=== PATIENT | male | born 1965 | race Caucasian/White ===

== ENCOUNTER 2016-02-16 11:16 | Emergency (ER) | payer OTHER ==
--- NOTE | 2016-02-16 14:28 | ED NURSING NOTES ---
Clinical Report - Nurses [facility] [address] [place] [address] 02/16/2016 11:17 Patient: GEORGETTE HONG TRIAGE Chief Complaint: BOIL and TENDER AREA. Alert. No acute distress. --11:44 Gary Cary R.N. 11:40 02/16/16. BP: 149/93. HR: 81. RR: 16. O2 saturation: 100%. Temp: 98.4 F. Pain level now: 07/24. --11:44 Gary Cary R.N. Weight: 77.1 kg stated. Height/Length: 71 inches Per Patient. BMI: 23.7. --11:42 Gary Cary R.N. Allergies No Known Drug Allergy. --14:41 Gary Cary R.N. History Arrived by private vehicle, and accompanied by family. Reported as located on the neck. Onset. (patient states that he noticed it when he was 26 years old, worsened recently). It is described as painful. Treatment PARTNERSHIP MANAGER: None. SOCIAL HX: Heavy tobacco smoker (cigarette)- 1-2 packs per day. FALL RISK ASSESSMENT: Fall risk assessment completed. No fall risk identified. NUTRITIONAL RISK ASSESSMENT: The nutritional risk assessment revealed no deficiencies. FUNCTIONAL ASSESSMENT: Functional assessment: no impairments noted. LEARNING NEEDS ASSESSMENT: The learning needs assessment revealed no barriers. SKIN INTEGRITY ASSESSMENT: Skin integrity risk assessment completed. No skin integrity risk identified. --11:44 Gary Cary R.N. ( Patient presents to the ED with symptoms of an abscess to the right side of the back of his head. States that he noticed the growth when he was 26 years old, but states that he thought it was just a pimple and that it would go away over time. States that the abscess became significantly worse a few days ago to the point that he was not able to put his hard hat on a work, so he decided to come and get seen.). --11:52 Gary Cary R.N. PROBLEMS: Tetanus Status. COPD - Chronic Obstructive Pulmonary Disease. --11:43 Gary Cary R.N. ADDITIONAL SURGERIES: Ankle. --11:43 Gary Cary R.N. Interventions ID band on patient. --11:44 Gary Cary R.N. PHYSICAL ASSESSMENT Ambulatory to room. GENERAL / NEURO / PSYCH: Alert. The patient does not appear to be in acute distress. Oriented X 4. HEENT: Pupils equal, round and reactive to light. Mucous membranes are pink. RESPIRATORY: Respirations not labored. Breath sounds within normal limits. CVS: Capillary refill less than 2 seconds. Pulses within normal limits. GI / : Abdomen nontender. SKIN: Skin is intact, warm and dry. Skin tenderness present. Swelling present. No skin rash. --11:44 Gary Cary R.N. NURSING PROGRESS NOTES I & D: Incision and Drainage of abscess performed by ED physician. The abscess is located on the neck. Preparation: Incision and Drainage tray set up and suture tray set-up. Procedure: skin cleansed with Betadine; a large amount of pus was drained. Cavity was irrigated with saline. Sample obtained for cultures. A dressing was applied. Post-procedure: he was stable, no complications, bleeding controlled and dressing intact. Total time of assist / procedure: 15 minutes. --14:08 Gary Cary R.N. 14:38 02/16/2016 Hydrocodone-APAP (Hydrocodone-Acetaminophen) PO 5/325 mg Tablets 1 tab given. Allergies verified, confirmed 5 rights and sedative warning given to the patient and patient's family. --14:38 Gary Cary R.N. Applied bulky dressing consisting of Tegaderm. --14:39 Gary Cary R.N. DISPOSITION / DISCHARGE Condition at departure: improved. The goals identified in the patient's plan of care were met. No learning barriers present. Discharge instructions provided and reviewed with the patient. Reviewed medication(s) side effects, precautions, dosing and course information. Prescription(s) given to the patient. Reviewed wound care instructions. Reviewed referral to a surgeon. Patient verbalized understanding. Written instructions provided in Rwandan. The patient was discharged home and accompanied by spouse. He left the Emergency Department ambulatory and via private vehicle. Spouse driving. FALL RISK ASSESSMENT: Fall risk assessment completed. No fall risk identified. --14:40 Gary Cary R.N. 14:39 02/16/16. BP: 150/92. HR: 73. RR: 18. O2 saturation: 98%. Temp: 98.2 F. Pain level now 8/10. --14:40 Gary Cary R.N. Departure time: 1440 PM. --14:40 Gary Cary R.N. Locked/Released at 02/16/2016 14:41 by Gary Cary R.N.
--- NOTE | 2016-02-16 14:28 | ED CLINICAL REPORT ---
Clinical Report - Physicians/Mid Levels [facility] [address] [place] [address] 02/16/2016 11:17 Patient: GEORGETTE HONG Time Seen: 12:46; initial patient contact. Arrived- By private vehicle. Historian- patient. HISTORY OF PRESENT ILLNESS Chief Complaint: BOIL. This started several years ago and is still present and worsening. It was gradual in onset. It is described as painful. It has been located on the neck. No cause has been identified. No recent medication or insect bite. Similar symptoms previously: None. Recent medical care: Not recently seen/assessed. REVIEW OF SYSTEMS No fever, chills or enlarged lymph nodes. He has had a headache. All systems otherwise negative, except as recorded above. PAST HISTORY COPD - Chronic Obstructive Pulmonary Disease. ADDITIONAL SURGERIES: Ankle. Allergies: No Known Drug Allergy. SOCIAL HISTORY Current every day smoker. No alcohol use or drug use. ADDITIONAL NOTES The nursing notes have been reviewed with agreement regarding the chief complaint, PMH and patient medications and allergies. PHYSICAL EXAM Vital Signs: 02/16/2016 11:40 BP: 149/93. HR: 81. RR: 16. O2 saturation: 100%. Temp: 98.4 F. Pain level now: 6/10. Have been reviewed. Hypertensive. Heart rate normal. Respiratory rate normal. Temperature normal. Oxygen saturation normal. Appearance: Alert. Oriented X3. No acute distress. ENT: Pharynx normal. Neck: Neck supple. No lymphadenopathy. CVS: Normal heart rate and rhythm. Heart sounds normal. Respiratory: No respiratory distress. Breath sounds normal. Skin: Single large tender indurated area with fluctuance and pointing to the back. No drainage or cellulitis. Neuro: Oriented X 3. LABS, X-RAYS, AND EKG Laboratory Tests: Culture, Wound Deep: (JERMAINE: 02/16/2016 14:00) ( MsgRcvd 02/16/2016 16:38) IP SPECIMEN DESCRIPTION: I D NECK CYST Test Result Flag Units (Reference) GRAM STAIN, WOUND, DEEP EPITHELIAL CELLS: FEW MIXED NIR: MIXED NIR WHITE BLOOD CELLS: FEW -- CYST FROM NECK . PROGRESS AND PROCEDURES Incision & Drainage of Abscess: Time: 14:11. Per protocol, time-out completed immediately before the procedure. The abscess is located in the neck. The risks of the procedure, benefits and alternatives were explained. Anesthesia provided using 1% lidocaine. Skin cleansed with Shur-Clens. The abscess was incised with a #11 surgical blade. A large amount of pus was drained. Cavity was irrigated with saline. Sample obtained for cultures. A dressing was applied. Estimated blood loss: 5 mL. Disposition: Discharged home in good and improved condition. Condition: good. CLINICAL IMPRESSION 02/16/2016 11:40 BP: 149/93. HR: 81. RR: 16. O2 saturation: 100%. Temp: 98.4 F. Pain level now: 07/24. Vital Signs: have been reviewed. Hypertensive. Heart rate normal. Respiratory rate normal. Temperature normal. Oxygen saturation normal. Sebaceous cyst INSTRUCTIONS Protect wound and keep wound area clean. Leave dressing in place until seen in follow-up. Prescription Medications: Hydrocodone/APAP 5mg / 325mg: take 1 orally every 6 hours as needed for pain. Dispense fifteen (15). No refill. Follow-up: Screening today revealed the patient's blood pressure to be in the hypertensive range. The patient should follow up with a primary care provider for blood pressure management. Follow-up with: Cj Mark MD, General Surgeon, , [facility], [address] [place] [address] Follow up in two. Call for an appointment. (Electronically signed by Lewis Kyle Dr. 02/16/2016 22:33)
--- NOTE | 2016-02-16 14:28 | ED CLINICAL REPORT ---
Clinical Report - Physicians/Mid Levels [facility] [address] [place] [address] 02/16/2016 11:17 Patient: GEORGETTE HONG Time Seen: 12:46; initial patient contact. Arrived- By private vehicle. Historian- patient. HISTORY OF PRESENT ILLNESS Chief Complaint: BOIL. This started several years ago and is still present and worsening. It was gradual in onset. It is described as painful. It has been located on the neck. No cause has been identified. No recent medication or insect bite. Similar symptoms previously: None. Recent medical care: Not recently seen/assessed. REVIEW OF SYSTEMS No fever, chills or enlarged lymph nodes. He has had a headache. All systems otherwise negative, except as recorded above. PAST HISTORY COPD - Chronic Obstructive Pulmonary Disease. ADDITIONAL SURGERIES: Ankle. Allergies: No Known Drug Allergy. SOCIAL HISTORY Current every day smoker. No alcohol use or drug use. ADDITIONAL NOTES The nursing notes have been reviewed with agreement regarding the chief complaint, PMH and patient medications and allergies. PHYSICAL EXAM Vital Signs: 02/16/2016 11:40 BP: 149/93. HR: 81. RR: 16. O2 saturation: 100%. Temp: 98.4 F. Pain level now: 6/10. Have been reviewed. Hypertensive. Heart rate normal. Respiratory rate normal. Temperature normal. Oxygen saturation normal. Appearance: Alert. Oriented X3. No acute distress. ENT: Pharynx normal. Neck: Neck supple. No lymphadenopathy. CVS: Normal heart rate and rhythm. Heart sounds normal. Respiratory: No respiratory distress. Breath sounds normal. Skin: Single large tender indurated area with fluctuance and pointing to the back. No drainage or cellulitis. Neuro: Oriented X 3. LABS, X-RAYS, AND EKG Laboratory Tests: Culture, Wound Deep: (JERMAINE: 02/16/2016 14:00) ( MsgRcvd 02/16/2016 16:38) IP SPECIMEN DESCRIPTION: I D NECK CYST Test Result Flag Units (Reference) GRAM STAIN, WOUND, DEEP EPITHELIAL CELLS: FEW MIXED NIR: MIXED NIR WHITE BLOOD CELLS: FEW -- CYST FROM NECK . PROGRESS AND PROCEDURES Incision & Drainage of Abscess: Time: 14:11. Per protocol, time-out completed immediately before the procedure. The abscess is located in the neck. The risks of the procedure, benefits and alternatives were explained. Anesthesia provided using 1% lidocaine. Skin cleansed with Shur-Clens. The abscess was incised with a #11 surgical blade. A large amount of pus was drained. Cavity was irrigated with saline. Sample obtained for cultures. A dressing was applied. Estimated blood loss: 5 mL. Disposition: Discharged home in good and improved condition. Condition: good. CLINICAL IMPRESSION 02/16/2016 11:40 BP: 149/93. HR: 81. RR: 16. O2 saturation: 100%. Temp: 98.4 F. Pain level now: 07/24. Vital Signs: have been reviewed. Hypertensive. Heart rate normal. Respiratory rate normal. Temperature normal. Oxygen saturation normal. Sebaceous cyst INSTRUCTIONS Protect wound and keep wound area clean. Leave dressing in place until seen in follow-up. Prescription Medications: Hydrocodone/APAP 5mg / 325mg: take 1 orally every 6 hours as needed for pain. Dispense fifteen (15). No refill. Follow-up: Screening today revealed the patient's blood pressure to be in the hypertensive range. The patient should follow up with a primary care provider for blood pressure management. Follow-up with: Cj Mark MD, General Surgeon, , [facility], [address] [place] [address] Follow up in two. Call for an appointment. (Electronically signed by Lewis Kyle Dr. 02/16/2016 22:33)
--- NOTE | 2016-02-16 14:28 | ED ORDER SUMMARY ---
..... Patient: GEORGETTE HONG OrderSheet [facility] VisitID: [id number] [address] [place] [address] 50y, M Registration Date/Time: 02/16/2016 ORDER SHEET Weight: 77.1 kg (stated) Allergies: No Known Drug Allergy GENERAL ORDERS: Culture, Wound Deep (Cyst) (I&D neck cyst) Urgent (14:07 02/16/2016 Darian Salazar) (Ack 14:09 IJurca ER Tech1) (14:26 Joel R.N.) MEDICATION ORDERS: Hydrocodone-APAP PO 5/325 mg (NOW, HIGH ALERT MEDICATION) (14:14 02/16/2016 Darian Salazar) (14:38 Joel R.N.) IV FLUIDS: ORDER SHEET NOTES: [Electronically signed by Gary Cary R.N. (14:41 02/16/2016)] [Electronically signed by Lewis Kyle Dr. (22:33 02/16/2016)] [Electronically locked/signed by Gary Cary R.N. (14:41 02/16/2016)]
--- NOTE | 2016-02-16 14:28 | ED ORDER SUMMARY ---
..... Patient: GEORGETTE HONG OrderSheet [facility] VisitID: [id number] [address] [place] [address] 50y, M Registration Date/Time: 02/16/2016 ORDER SHEET Weight: 77.1 kg (stated) Allergies: No Known Drug Allergy GENERAL ORDERS: Culture, Wound Deep (Cyst) (I&D neck cyst) Urgent (14:07 02/16/2016 Darian Salazar) (Ack 14:09 IJurca ER Tech1) (14:26 Joel R.N.) MEDICATION ORDERS: Hydrocodone-APAP PO 5/325 mg (NOW, HIGH ALERT MEDICATION) (14:14 02/16/2016 Darian Salazar) (14:38 Joel R.N.) IV FLUIDS: ORDER SHEET NOTES: [Electronically signed by Gary Cary R.N. (14:41 02/16/2016)] [Electronically signed by Lewis Kyle Dr. (22:33 02/16/2016)] [Electronically locked/signed by Gary Cary R.N. (14:41 02/16/2016)]
--- NOTE | 2016-02-16 14:28 | ED NURSING NOTES ---
Clinical Report - Nurses [facility] [address] [place] [address] 02/16/2016 11:17 Patient: GEORGETTE HONG TRIAGE Chief Complaint: BOIL and TENDER AREA. Alert. No acute distress. --11:44 Gary Cary R.N. 11:40 02/16/16. BP: 149/93. HR: 81. RR: 16. O2 saturation: 100%. Temp: 98.4 F. Pain level now: 07/24. --11:44 Gary Cary R.N. Weight: 77.1 kg stated. Height/Length: 71 inches Per Patient. BMI: 23.7. --11:42 Gary Cary R.N. Allergies No Known Drug Allergy. --14:41 Gary Cary R.N. History Arrived by private vehicle, and accompanied by family. Reported as located on the neck. Onset. (patient states that he noticed it when he was 26 years old, worsened recently). It is described as painful. Treatment SALES AND SERVICE SPECIALIST: None. SOCIAL HX: Heavy tobacco smoker (cigarette)- 1-2 packs per day. FALL RISK ASSESSMENT: Fall risk assessment completed. No fall risk identified. NUTRITIONAL RISK ASSESSMENT: The nutritional risk assessment revealed no deficiencies. FUNCTIONAL ASSESSMENT: Functional assessment: no impairments noted. LEARNING NEEDS ASSESSMENT: The learning needs assessment revealed no barriers. SKIN INTEGRITY ASSESSMENT: Skin integrity risk assessment completed. No skin integrity risk identified. --11:44 Gary Cary R.N. ( Patient presents to the ED with symptoms of an abscess to the right side of the back of his head. States that he noticed the growth when he was 26 years old, but states that he thought it was just a pimple and that it would go away over time. States that the abscess became significantly worse a few days ago to the point that he was not able to put his hard hat on a work, so he decided to come and get seen.). --11:52 Gary Cary R.N. PROBLEMS: Tetanus Status. COPD - Chronic Obstructive Pulmonary Disease. --11:43 Gary Cary R.N. ADDITIONAL SURGERIES: Ankle. --11:43 Gary Cary R.N. Interventions ID band on patient. --11:44 Gary Cary R.N. PHYSICAL ASSESSMENT Ambulatory to room. GENERAL / NEURO / PSYCH: Alert. The patient does not appear to be in acute distress. Oriented X 4. HEENT: Pupils equal, round and reactive to light. Mucous membranes are pink. RESPIRATORY: Respirations not labored. Breath sounds within normal limits. CVS: Capillary refill less than 2 seconds. Pulses within normal limits. GI / : Abdomen nontender. SKIN: Skin is intact, warm and dry. Skin tenderness present. Swelling present. No skin rash. --11:44 Gary Cary R.N. NURSING PROGRESS NOTES I & D: Incision and Drainage of abscess performed by ED physician. The abscess is located on the neck. Preparation: Incision and Drainage tray set up and suture tray set-up. Procedure: skin cleansed with Betadine; a large amount of pus was drained. Cavity was irrigated with saline. Sample obtained for cultures. A dressing was applied. Post-procedure: he was stable, no complications, bleeding controlled and dressing intact. Total time of assist / procedure: 15 minutes. --14:08 Gary Cary R.N. 14:38 02/16/2016 Hydrocodone-APAP (Hydrocodone-Acetaminophen) PO 5/325 mg Tablets 1 tab given. Allergies verified, confirmed 5 rights and sedative warning given to the patient and patient's family. --14:38 Gary Cary R.N. Applied bulky dressing consisting of Tegaderm. --14:39 Gary Cary R.N. DISPOSITION / DISCHARGE Condition at departure: improved. The goals identified in the patient's plan of care were met. No learning barriers present. Discharge instructions provided and reviewed with the patient. Reviewed medication(s) side effects, precautions, dosing and course information. Prescription(s) given to the patient. Reviewed wound care instructions. Reviewed referral to a surgeon. Patient verbalized understanding. Written instructions provided in Turkish. The patient was discharged home and accompanied by spouse. He left the Emergency Department ambulatory and via private vehicle. Spouse driving. FALL RISK ASSESSMENT: Fall risk assessment completed. No fall risk identified. --14:40 Gary Cary R.N. 14:39 02/16/16. BP: 150/92. HR: 73. RR: 18. O2 saturation: 98%. Temp: 98.2 F. Pain level now 8/10. --14:40 Gary Cary R.N. Departure time: 1440 PM. --14:40 Gary Cary R.N. Locked/Released at 02/16/2016 14:41 by Gary Cary R.N.
--- NOTE | 2016-02-16 22:33 | ED MED RECONCILIATION SUMMARY ---
Patient: GEORGETTE HONG Medication Reconciliation Report [facility] VisitID: [id number] [address] [place] [address] 50y, M Registration Date/Time: 02/16/2016 Weight: 77.1 kg Height/Length: 71 in. BMI: 23.7 ALLERGIES: No Known Drug Allergy The patient's Home Medications are listed below: Not obtained. The source(s) of the original Home Medication information: Not obtained. The following Medications were given to the patient in the Emergency Department: Hydrocodone-APAP [PO] PO 1 tab, administered: 02/16/2016 2:38:00 PM The following Medications were prescribed to the patient: Hydrocodone/APAP 5mg / 325mg: take 1 orally every 6 hours as needed for pain. Dispense fifteen (15). No refill. -- Lewis Kyle Dr.
--- NOTE | 2016-02-16 22:33 | ED DISCHARGE INSTRUCTIONS ---
Patient: GEORGETTE HONG General Instructions [facility] VisitID: [id number] [address] [place] [address] 50y, M Registration Date/Time: 02/16/2016 02/16/2016 11:40 BP: 149/93. HR: 81. RR: 16. O2 saturation: 100%. Temp: 98.4 F. Pain level now: 07/24. Vital Signs: have been reviewed. Hypertensive. Heart rate normal. Respiratory rate normal. Temperature normal. Oxygen saturation normal. Sebaceous cyst INSTRUCTIONS Protect wound and keep wound area clean. Leave dressing in place until seen in follow-up. Prescription Medications: Hydrocodone/APAP 5mg / 325mg: take 1 orally every 6 hours as needed for pain. Dispense fifteen (15). No refill. Follow-up: Screening today revealed the patient's blood pressure to be in the hypertensive range. The patient should follow up with a primary care provider for blood pressure management. Follow-up with: Cj Mark MD, General Surgeon, , [facility], [address] [place] [address] Follow up in two. Call for an appointment. ADDITIONAL INFORMATION Sebaceous Cyst [No Infection] A Sebaceous Cyst occurs when the opening of an oil gland in the skin becomes blocked. The gland swells with skin oil and skin cells. As it gets bigger, it appears as a small painless lump under the skin. Unless a sebaceous cyst becomes infected, it is painless and causes no symptoms. Home Care: 1) Clean the cyst area when bathing or showering. 2) Be alert for signs of infection listed below. Follow Up with your doctor or as advised by our staff. Get Prompt Medical Attention if any of the following occur: -- Swelling, redness or pain -- Pus coming from the cyst Hydrocodone Bitartrate, Acetaminophen Oral tablet What is this medicine? ACETAMINOPHEN; HYDROCODONE (a set a MEMO rita fen; darwin droe KOE done) is a pain reliever. It is used to treat mild to moderate pain. How should I use this medicine? Take this medicine by mouth. Swallow it with a full glass of water. Follow the directions on the prescription label. If the medicine upsets your stomach, take the medicine with food or milk. Do not take more than you are told to take. Talk to your manager pricing regarding the use of this medicine in children. This medicine is not approved for use in children. What side effects may I notice from receiving this medicine? Side effects that you should report to your doctor or health day care attendant as soon as possible: allergic reactions like skin rash, itching or hives, swelling of the face, lips, or tongue breathing problems confusion feeling faint or lightheaded, falls stomach pain yellowing of the eyes or skin Side effects that usually do not require medical attention (report to your doctor or health day care attendant if they continue or are bothersome): nausea, vomiting stomach upset What may interact with this medicine? alcohol antihistamines isoniazid medicines for depression, anxiety, or psychotic disturbances medicines for sleep muscle relaxants naltrexone narcotic medicines (opiates) for pain phenobarbital ritonavir tramadol What if I miss a dose? If you miss a dose, take it as soon as you can. If it is almost time for your next dose, take only that dose. Do not take double or extra doses. Where should I keep my medicine? Keep out of the reach of children. This medicine can be abused. Keep your medicine in a safe place to protect it from theft. Do not share this medicine with anyone. Selling or giving away this medicine is dangerous and against the law. Store at room temperature between 15 and 30 degrees C (59 and 86 degrees F). Protect from light. Keep container tightly closed. Throw away any unused medicine after the expiration date. Discard unused medicine and used packaging carefully. Pets and children can be harmed if they find used or lost packages. What should I tell my health care provider before I take this medicine? They need to know if you have any of these conditions: brain tumor Crohn's disease, inflammatory bowel disease, or ulcerative colitis drink more than 3 alcohol-containing drinks per day drug abuse or addiction head injury heart or circulation problems kidney disease or problems going to the bathroom liver disease lung disease, asthma, or breathing problems an unusual or allergic reaction to acetaminophen, hydrocodone, other opioid analgesics, other medicines, foods, dyes, or preservatives or trying to get breast-feeding What should I watch for while using this medicine? Tell your doctor or health day care attendant if your pain does not go away, if it gets worse, or if you have new or a different type of pain. You may develop tolerance to the medicine. Tolerance means that you will need a higher dose of the medicine for pain relief. Tolerance is normal and is expected if you take the medicine for a long time. Do not suddenly stop taking your medicine because you may develop a severe reaction. Your body becomes used to the medicine. This does NOT mean you are addicted. Addiction is a behavior related to getting and using a drug for a non-medical reason. If you have pain, you have a medical reason to take pain medicine. Your doctor will tell you how much medicine to take. If your doctor wants you to stop the medicine, the dose will be slowly lowered over time to avoid any side effects. You may get drowsy or dizzy when you first start taking the medicine or change doses. Do not drive, use machinery, or do anything that may be dangerous until you know how the medicine affects you. Stand or sit up slowly. There are different types of narcotic medicines (opiates) for pain. If you take more than one type at the same time, you may have more side effects. Give your health care provider a list of all medicines you use. Your doctor will tell you how much medicine to take. Do not take more medicine than directed. Call emergency for help if you have problems breathing. The medicine will cause constipation. Try to have a bowel movement at least every 2 to 3 days. If you do not have a bowel movement for 3 days, call your doctor or health day care attendant. Too much acetaminophen can be very dangerous. Do not take Tylenol (acetaminophen) or medicines that contain acetaminophen with this medicine. Many non-prescription medicines contain acetaminophen. Always read the labels carefully. You have been given the following additional information: Sebaceous Cyst Hydrocodone Bitartrate, Acetaminophen Oral tablet (Electronically signed by Lewis Kyle Dr. 02/16/2016 22:33)
--- NOTE | 2016-02-16 22:33 | ED MAR SUMMARY ---
..... Medication Administration Record [facility] [address] [place] [address] Patient: GEORGETTE HONG Visit ID: [id number] 50y, M Weight: 77.1 kg Height/Length: 71 in BMI: 23.7 ALLERGIES: No Known Drug Allergy Given 14:38 02/16/2016 Gary Cary R.N. Medication Administered: HYDROCODONE-APAP [PO] (HYDROCODONE-ACETAMINOPHEN), Dose: 1 tab 5/325 mg Tablets PO. Medication Ordered: Hydrocodone-APAP PO 5/325 mg (NOW, HIGH ALERT MEDICATION).
--- NOTE | 2016-02-16 22:33 | ED MED RECONCILIATION SUMMARY ---
Patient: GEORGETTE HONG Medication Reconciliation Report [facility] VisitID: [id number] [address] [place] [address] 50y, M Registration Date/Time: 02/16/2016 Weight: 77.1 kg Height/Length: 71 in. BMI: 23.7 ALLERGIES: No Known Drug Allergy The patient's Home Medications are listed below: Not obtained. The source(s) of the original Home Medication information: Not obtained. The following Medications were given to the patient in the Emergency Department: Hydrocodone-APAP [PO] PO 1 tab, administered: 02/16/2016 2:38:00 PM The following Medications were prescribed to the patient: Hydrocodone/APAP 5mg / 325mg: take 1 orally every 6 hours as needed for pain. Dispense fifteen (15). No refill. -- Lewis Kyle Dr.
--- NOTE | 2016-02-16 22:33 | ED MAR SUMMARY ---
..... Medication Administration Record [facility] [address] [place] [address] Patient: GEORGETTE HONG Visit ID: [id number] 50y, M Weight: 77.1 kg Height/Length: 71 in BMI: 23.7 ALLERGIES: No Known Drug Allergy Given 14:38 02/16/2016 Gary Cary R.N. Medication Administered: HYDROCODONE-APAP [PO] (HYDROCODONE-ACETAMINOPHEN), Dose: 1 tab 5/325 mg Tablets PO. Medication Ordered: Hydrocodone-APAP PO 5/325 mg (NOW, HIGH ALERT MEDICATION).
--- NOTE | 2016-02-16 22:33 | ED DISCHARGE INSTRUCTIONS ---
Patient: GEORGETTE HONG General Instructions [facility] VisitID: [id number] [address] [place] [address] 50y, M Registration Date/Time: 02/16/2016 02/16/2016 11:40 BP: 149/93. HR: 81. RR: 16. O2 saturation: 100%. Temp: 98.4 F. Pain level now: 07/24. Vital Signs: have been reviewed. Hypertensive. Heart rate normal. Respiratory rate normal. Temperature normal. Oxygen saturation normal. Sebaceous cyst INSTRUCTIONS Protect wound and keep wound area clean. Leave dressing in place until seen in follow-up. Prescription Medications: Hydrocodone/APAP 5mg / 325mg: take 1 orally every 6 hours as needed for pain. Dispense fifteen (15). No refill. Follow-up: Screening today revealed the patient's blood pressure to be in the hypertensive range. The patient should follow up with a primary care provider for blood pressure management. Follow-up with: Cj Mark MD, General Surgeon, , [facility], [address] [place] [address] Follow up in two. Call for an appointment. ADDITIONAL INFORMATION Sebaceous Cyst [No Infection] A Sebaceous Cyst occurs when the opening of an oil gland in the skin becomes blocked. The gland swells with skin oil and skin cells. As it gets bigger, it appears as a small painless lump under the skin. Unless a sebaceous cyst becomes infected, it is painless and causes no symptoms. Home Care: 1) Clean the cyst area when bathing or showering. 2) Be alert for signs of infection listed below. Follow Up with your doctor or as advised by our staff. Get Prompt Medical Attention if any of the following occur: -- Swelling, redness or pain -- Pus coming from the cyst Hydrocodone Bitartrate, Acetaminophen Oral tablet What is this medicine? ACETAMINOPHEN; HYDROCODONE (a set a MEMO rita fen; darwin droe KOE done) is a pain reliever. It is used to treat mild to moderate pain. How should I use this medicine? Take this medicine by mouth. Swallow it with a full glass of water. Follow the directions on the prescription label. If the medicine upsets your stomach, take the medicine with food or milk. Do not take more than you are told to take. Talk to your scratch finisher regarding the use of this medicine in children. This medicine is not approved for use in children. What side effects may I notice from receiving this medicine? Side effects that you should report to your doctor or health post anesthesia care unit nurse as soon as possible: allergic reactions like skin rash, itching or hives, swelling of the face, lips, or tongue breathing problems confusion feeling faint or lightheaded, falls stomach pain yellowing of the eyes or skin Side effects that usually do not require medical attention (report to your doctor or health post anesthesia care unit nurse if they continue or are bothersome): nausea, vomiting stomach upset What may interact with this medicine? alcohol antihistamines isoniazid medicines for depression, anxiety, or psychotic disturbances medicines for sleep muscle relaxants naltrexone narcotic medicines (opiates) for pain phenobarbital ritonavir tramadol What if I miss a dose? If you miss a dose, take it as soon as you can. If it is almost time for your next dose, take only that dose. Do not take double or extra doses. Where should I keep my medicine? Keep out of the reach of children. This medicine can be abused. Keep your medicine in a safe place to protect it from theft. Do not share this medicine with anyone. Selling or giving away this medicine is dangerous and against the law. Store at room temperature between 15 and 30 degrees C (59 and 86 degrees F). Protect from light. Keep container tightly closed. Throw away any unused medicine after the expiration date. Discard unused medicine and used packaging carefully. Pets and children can be harmed if they find used or lost packages. What should I tell my health care provider before I take this medicine? They need to know if you have any of these conditions: brain tumor Crohn's disease, inflammatory bowel disease, or ulcerative colitis drink more than 3 alcohol-containing drinks per day drug abuse or addiction head injury heart or circulation problems kidney disease or problems going to the bathroom liver disease lung disease, asthma, or breathing problems an unusual or allergic reaction to acetaminophen, hydrocodone, other opioid analgesics, other medicines, foods, dyes, or preservatives or trying to get breast-feeding What should I watch for while using this medicine? Tell your doctor or health post anesthesia care unit nurse if your pain does not go away, if it gets worse, or if you have new or a different type of pain. You may develop tolerance to the medicine. Tolerance means that you will need a higher dose of the medicine for pain relief. Tolerance is normal and is expected if you take the medicine for a long time. Do not suddenly stop taking your medicine because you may develop a severe reaction. Your body becomes used to the medicine. This does NOT mean you are addicted. Addiction is a behavior related to getting and using a drug for a non-medical reason. If you have pain, you have a medical reason to take pain medicine. Your doctor will tell you how much medicine to take. If your doctor wants you to stop the medicine, the dose will be slowly lowered over time to avoid any side effects. You may get drowsy or dizzy when you first start taking the medicine or change doses. Do not drive, use machinery, or do anything that may be dangerous until you know how the medicine affects you. Stand or sit up slowly. There are different types of narcotic medicines (opiates) for pain. If you take more than one type at the same time, you may have more side effects. Give your health care provider a list of all medicines you use. Your doctor will tell you how much medicine to take. Do not take more medicine than directed. Call emergency for help if you have problems breathing. The medicine will cause constipation. Try to have a bowel movement at least every 2 to 3 days. If you do not have a bowel movement for 3 days, call your doctor or health post anesthesia care unit nurse. Too much acetaminophen can be very dangerous. Do not take Tylenol (acetaminophen) or medicines that contain acetaminophen with this medicine. Many non-prescription medicines contain acetaminophen. Always read the labels carefully. You have been given the following additional information: Sebaceous Cyst Hydrocodone Bitartrate, Acetaminophen Oral tablet (Electronically signed by Lewis Kyle Dr. 02/16/2016 22:33)
[2016-04-01] MEDS ORDERED: HYCET1 ML PO (09:37)
== END 2016-02-16 14:41 | disposition home or self-care (01) ==
LOC: ED SRH 11:16
DX: L72.3 Sebaceous cyst (principal); J44.9 Chronic obstructive pulmonary disease, unspecified; F17.210 Nicotine dependence, cigarettes, uncomplicated
CPT/HCPCS: 90131; 90309; 90470; 91672

== ENCOUNTER 2016-02-19 10:12 | Emergency (ER) | payer OTHER ==
--- NOTE | 2016-02-19 11:51 | ED CLINICAL REPORT ---
Clinical Report - Physicians/Mid Levels [facility] [address] [place] [address] 02/19/2016 10:14 Patient: GEORGETTE HONG Time Seen: 1118. Arrived- By private vehicle. Historian- patient. HISTORY OF PRESENT ILLNESS Chief Complaint: WOUND RECHECK. Treated in emergency department three days ago. The patient has no complaints since the procedure was performed. Previous emergency department treatment: Incision and Drainage of abscess. No antibiotics given. (Pt had I&D of a sebaceous cyst. He states there has been mild, bloody drainage, but otherwise, no complaints or issues.). REVIEW OF SYSTEMS No fever, numbness, weakness, nausea or vomiting. No chest pain, difficulty breathing or bladder dysfunction. He has had a headache (chronically). All systems otherwise negative, except as recorded above. PAST HISTORY Problems: Conjunctivitis. Corneal Abrasion. Immunizations. Tetanus Status. Last Tetanus. COPD - Chronic Obstructive Pulmonary Disease. Gastritis. Additional Surgeries: Ankle. Medications: None. Allergies: No Known Drug Allergy. SOCIAL HISTORY Smoker- current status unknown. ADDITIONAL NOTES The nursing notes have been reviewed. PHYSICAL EXAM Vital Signs: 02/19/2016 10:21 BP: 141/90. HR: 73. RR: 18. O2 saturation: 98%. Temp: 97.8 F. Have been reviewed. Appearance: Alert. Oriented X3. No acute distress. Head: Head non-tender. No swelling of head. Eyes: Pupils equal, round and reactive to light. EOM intact. Neck: (PT has mild tenderness at the I&D site.). Respiratory: No respiratory distress. Back: ROM normal. Skin: No infection. Single incision on the neck. No erythema, tenderness or increased warmth. Extremities: Extremities atraumatic. Neuro, Vascular and Tendons: Sensation intact. Neuro: Oriented X 3. No motor deficit. No sensory deficit. (Grossly normal.). LABS, X-RAYS, AND EKG Pulse Oximetry: 02/19/2016 10:21 O2 saturation: 98%. (FIO2 - room air). Interpretation: normal. PROGRESS AND PROCEDURES Course of Care: I did irrigate the pt's wound with NS. A mild amount of sebaceous material was obtained, but otherwise, effluent was clear. Culture was negative, to date. Pt stated that he tried to f/u with surgery, as directed, to discuss having the cyst removed completely, but they stated they needed a referral from pt's PCP. We did get a same day appt with [facility], where pt has been seen before; however, he stated he could not come until tomorrow, so we have given him instructions to call them and work out a date and time that works for him. Patient counseled in person regarding the patient's stable condition, test results, diagnosis and need for follow-up. Concerns were addressed. Old medical records reviewed. Disposition: Discharged. Condition: stable. CLINICAL IMPRESSION Sebaceous cyst INSTRUCTIONS Warnings: GENERAL WARNINGS: Return or contact your physician immediately if your condition worsens or changes unexpectedly, if not improving as expected, or if other problems arise. Understanding of the discharge instructions verbalized by patient. Follow-up with: [facility], , , [address], , [facility] [address] Follow up. Call for the next available appointment. (Electronically signed by Katherine Monte MD 02/23/2016 11:41) Addenda for GEORGETTE HONG VisitID: [id number] Date: 02/19/2016 02/20/2016 10:53 culture report faxed to [facility] KANDICE Carter was shown it yesterday (Electronically signed by Lynette James R.N. 02/20/2016 10:53)
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
--- NOTE | 2016-02-19 11:51 | ED CLINICAL REPORT ---
Clinical Report - Physicians/Mid Levels [facility] [address] [place] [address] 02/19/2016 10:14 Patient: GEORGETTE HONG Time Seen: 1118. Arrived- By private vehicle. Historian- patient. HISTORY OF PRESENT ILLNESS Chief Complaint: WOUND RECHECK. Treated in emergency department three days ago. The patient has no complaints since the procedure was performed. Previous emergency department treatment: Incision and Drainage of abscess. No antibiotics given. (Pt had I&D of a sebaceous cyst. He states there has been mild, bloody drainage, but otherwise, no complaints or issues.). REVIEW OF SYSTEMS No fever, numbness, weakness, nausea or vomiting. No chest pain, difficulty breathing or bladder dysfunction. He has had a headache (chronically). All systems otherwise negative, except as recorded above. PAST HISTORY Problems: Conjunctivitis. Corneal Abrasion. Immunizations. Tetanus Status. Last Tetanus. COPD - Chronic Obstructive Pulmonary Disease. Gastritis. Additional Surgeries: Ankle. Medications: None. Allergies: No Known Drug Allergy. SOCIAL HISTORY Smoker- current status unknown. ADDITIONAL NOTES The nursing notes have been reviewed. PHYSICAL EXAM Vital Signs: 02/19/2016 10:21 BP: 141/90. HR: 73. RR: 18. O2 saturation: 98%. Temp: 97.8 F. Have been reviewed. Appearance: Alert. Oriented X3. No acute distress. Head: Head non-tender. No swelling of head. Eyes: Pupils equal, round and reactive to light. EOM intact. Neck: (PT has mild tenderness at the I&D site.). Respiratory: No respiratory distress. Back: ROM normal. Skin: No infection. Single incision on the neck. No erythema, tenderness or increased warmth. Extremities: Extremities atraumatic. Neuro, Vascular and Tendons: Sensation intact. Neuro: Oriented X 3. No motor deficit. No sensory deficit. (Grossly normal.). LABS, X-RAYS, AND EKG Pulse Oximetry: 02/19/2016 10:21 O2 saturation: 98%. (FIO2 - room air). Interpretation: normal. PROGRESS AND PROCEDURES Course of Care: I did irrigate the pt's wound with NS. A mild amount of sebaceous material was obtained, but otherwise, effluent was clear. Culture was negative, to date. Pt stated that he tried to f/u with surgery, as directed, to discuss having the cyst removed completely, but they stated they needed a referral from pt's PCP. We did get a same day appt with [facility], where pt has been seen before; however, he stated he could not come until tomorrow, so we have given him instructions to call them and work out a date and time that works for him. Patient counseled in person regarding the patient's stable condition, test results, diagnosis and need for follow-up. Concerns were addressed. Old medical records reviewed. Disposition: Discharged. Condition: stable. CLINICAL IMPRESSION Sebaceous cyst INSTRUCTIONS Warnings: GENERAL WARNINGS: Return or contact your physician immediately if your condition worsens or changes unexpectedly, if not improving as expected, or if other problems arise. Understanding of the discharge instructions verbalized by patient. Follow-up with: [facility], , , [address], , [facility] [id number] Follow up. Call for the next available appointment. (Electronically signed by Katherine Monte MD 02/23/2016 11:41) Addenda for GEORGETTE HONG VisitID: [id number] Date: 02/19/2016 02/20/2016 10:53 culture report faxed to [facility] KANDICE Carter was shown it yesterday (Electronically signed by Lynette James R.N. 02/20/2016 10:53)
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
--- NOTE | 2016-02-23 11:41 | ED MAR SUMMARY ---
..... Medication Administration Record [facility] [address] [place], [place] [id number] Patient: GEORGETTE HONG Visit ID: [id number] 50y, M Weight: 77.0 kg Height/Length: 71 in BMI: 23.7 ALLERGIES: No Known Drug Allergy
--- NOTE | 2016-02-23 11:41 | ED MED RECONCILIATION SUMMARY ---
Patient: GEORGETTE HONG Medication Reconciliation Report [facility] VisitID: [id number] [address] [place] [address] 50y, M Registration Date/Time: 02/19/2016 Weight: 77 kg Height/Length: 71 in. BMI: 23.7 ALLERGIES: No Known Drug Allergy The patient's Home Medications are listed below: NONE. The source(s) of the original Home Medication information: patient The following Medications were given to the patient in the Emergency Department: None. The following Medications were prescribed to the patient: None.
--- NOTE | 2016-02-23 11:41 | ED DISCHARGE INSTRUCTIONS ---
Patient: GEORGETTE HONG General Instructions [facility] VisitID: [id number] [address] [place] [address] 50y, M Registration Date/Time: 02/19/2016 Sebaceous cyst INSTRUCTIONS Warnings: GENERAL WARNINGS: Return or contact your physician immediately if your condition worsens or changes unexpectedly, if not improving as expected, or if other problems arise. Understanding of the discharge instructions verbalized by patient. Follow-up with: [facility], , , [address], , [place], [address] Follow up. Call for the next available appointment. ADDITIONAL INFORMATION Sebaceous Cyst [No Infection] A Sebaceous Cyst occurs when the opening of an oil gland in the skin becomes blocked. The gland swells with skin oil and skin cells. As it gets bigger, it appears as a small painless lump under the skin. Unless a sebaceous cyst becomes infected, it is painless and causes no symptoms. Home Care: 1) Clean the cyst area when bathing or showering. 2) Be alert for signs of infection listed below. Follow Up with your doctor or as advised by our staff. Get Prompt Medical Attention if any of the following occur: -- Swelling, redness or pain -- Pus coming from the cyst You have been given the following additional information: Sebaceous Cyst (Electronically signed by Katherine Monte MD 02/23/2016 11:41)
--- NOTE | 2016-02-23 11:41 | ED MED RECONCILIATION SUMMARY ---
Patient: GEORGETTE HONG Medication Reconciliation Report [facility] VisitID: [id number] [address] [place] [address] 50y, M Registration Date/Time: 02/19/2016 Weight: 77 kg Height/Length: 71 in. BMI: 23.7 ALLERGIES: No Known Drug Allergy The patient's Home Medications are listed below: NONE. The source(s) of the original Home Medication information: patient The following Medications were given to the patient in the Emergency Department: None. The following Medications were prescribed to the patient: None.
--- NOTE | 2016-02-23 11:41 | ED DISCHARGE INSTRUCTIONS ---
Patient: GEORGETTE HONG General Instructions [facility] VisitID: [id number] [address] [place] [address] 50y, M Registration Date/Time: 02/19/2016 Sebaceous cyst INSTRUCTIONS Warnings: GENERAL WARNINGS: Return or contact your physician immediately if your condition worsens or changes unexpectedly, if not improving as expected, or if other problems arise. Understanding of the discharge instructions verbalized by patient. Follow-up with: [facility], , , [address], , [place], [address] Follow up. Call for the next available appointment. ADDITIONAL INFORMATION Sebaceous Cyst [No Infection] A Sebaceous Cyst occurs when the opening of an oil gland in the skin becomes blocked. The gland swells with skin oil and skin cells. As it gets bigger, it appears as a small painless lump under the skin. Unless a sebaceous cyst becomes infected, it is painless and causes no symptoms. Home Care: 1) Clean the cyst area when bathing or showering. 2) Be alert for signs of infection listed below. Follow Up with your doctor or as advised by our staff. Get Prompt Medical Attention if any of the following occur: -- Swelling, redness or pain -- Pus coming from the cyst You have been given the following additional information: Sebaceous Cyst (Electronically signed by Katherine Monte MD 02/23/2016 11:41)
--- NOTE | 2016-02-23 11:41 | ED MAR SUMMARY ---
..... Medication Administration Record [facility] [address] [place], [place] [id number] Patient: GEORGETTE HONG Visit ID: [id number] 50y, M Weight: 77.0 kg Height/Length: 71 in BMI: 23.7 ALLERGIES: No Known Drug Allergy
[2016-04-01] MEDS ORDERED: HYCET1 ML PO (09:37)
== END 2016-02-19 12:05 | disposition home or self-care (01) ==
LOC: ED SRH 10:12
DX: L72.3 Sebaceous cyst (principal); J44.9 Chronic obstructive pulmonary disease, unspecified